=== PATIENT | female | born 1935 | race Two or more races ===

== ENCOUNTER 2017-08-20 18:00 | Emergency (ER) | payer OTHER ==
[2017-08-20 18:55] VITALS: BP 149/63
== END 2017-08-20 18:56 | disposition home or self-care (01) ==
LOC: ED 18:00
DX: J18.1 Lobar pneumonia, unspecified organism (principal); I10 Essential (primary) hypertension; Z88.0 Allergy status to penicillin

== ENCOUNTER 2018-09-25 18:39 | Emergency (ER) | payer OTHER ==
[~2018-09-25] VITALS: Ht 157.5 cm; Wt 61.7 kg
[2018-09-25 18:55] VITALS: Ht 157.5 cm; Wt 61.7 kg
[2018-09-25 19:46] LABS: ALKALINE PHOSPHATASE 83 U/L (46-116); ALT/SGPT 19 U/L (14-59); AST/SGOT 27 U/L (15-37); BILIRUBIN TOTAL 1.09 mg/dL (0.20-1.00); CALCIUM 7.8 mg/dL (8.5-10.1); CHLORIDE SERUM 94 mmol/L (98-107); CREATININE SERUM 1.3 mg/dL (0.6-1.0); GLUCOSE SERUM 116 mg/dL (74-106); LIPASE 169 IU/L (73-393); POTASSIUM SERUM 3.8 mmol/L (3.5-5.1); SODIUM SERUM 128 mmol/L (136-145); TOTAL PROTEIN, SERUM 7.6 g/dL (6.4-8.2)
[2018-09-25 19:47] LABS: ALBUMIN 2.7 g/dL (3.4-5.0)
[2018-09-25 19:50] LABS: BASOPHIL % 0.1 % (0-2); PLATELET COUNT 199 x10^3mcL (130-400); RED CELL DISTRIBUTION WIDTH 14.2 % (11.5-14.5)
[2018-09-25 20:15] LABS: microscopic required? YES; urine erythrocyte 2+ (NEGATIVE)
[2018-09-25 23:05] VITALS: BP 102/50
== END 2018-09-25 23:05 | disposition home or self-care (01) ==
LOC: ED 18:39
PROVIDERS: Emergency Medicine
DX: E86.0 Dehydration (principal); E87.1 Hypo-osmolality and hyponatremia; N39.0 Urinary tract infection, site not specified; R11.2 Nausea with vomiting, unspecified; R19.7 Diarrhea, unspecified; R53.1 Weakness; I10 Essential (primary) hypertension; Z90.49 Acquired absence of other specified parts of digestive tract; Z88.0 Allergy status to penicillin
CPT/HCPCS: J2405; J7030